=== PATIENT | male | born 1935 | race Caucasian/White ===

== ENCOUNTER → 2016-05-07 | Outpatient (CLI) | payer MEDICARE, OTHER ==
[~2016-05-07] MED LIST: /HCTZ25TA PO; /PANT40TA PO; ASPI81TA85 PO; BISAC5TA PO; CORE12.5 PO; CORE25TA PO; D 1010004 PO; DULC10SU9 PR; ELIQ5TAB PO; FLAG500T PO; HYDR25TAB PO; MAGN1TAB25 PO; METO50TA4 PO; MOM30SS PO; MULTLIQ7 PO; OXYC-517 PO; PROT1TAB2 PO; SOTA120T PO; SOTA160T PO; SPIR25TA2 PO; TYLE650T30 PO; VITA-112 PO; VITA-122 PO; VITAD1000T FT; multivitamin PO
--- NOTE | 2016-05-09 20:07 | SLEEPCENT ---
DATE OF PROCEDURE: 05/07/2016 REQUESTING PROVIDER: Malinda Ferguson NP INTERPRETATION: Nocturnal polysomnography was performed due to concern for the obstructive sleep apnea syndrome in this patient with a history of excessive somnolence and snoring and significant comorbidities of cardiac arrhythmia, heart failure and CVA. 7 hours and 31 minutes of data were reviewed. There were 260 minutes of sleep identified. Sleep latency was mildly prolonged at 45 minutes. Rapid eye movement (REM) latency was more so prolonged at 217 minutes. Sleep architecture showed poor progression and fragmentation. There were 2 REM periods appreciated. Overall efficiency was reduced by periods of wake to 58.5%. The patient's electrocardiogram (EKG) was abnormal with an underlying supraventricular rhythm and frequent ectopy throughout. Average heart rate however was 60 beats per minute. Electroencephalogram (EEG) showed reasonably normal waveforms for sleep and wake stages. There were 26 respiratory events identified of 10 seconds in duration or greater for an apnea-hypopnea index of 5.2. The events were primarily hypopneic and not exclusive to sleep stage nor body posture. Some snoring was noted as well. Arousals from respiratory events occurred only 1.6 times per hour. Oxygen saturations remained normal with minimal limb activity and limb movement arousal index was only 3. IMPRESSION: 1. Mild obstructive sleep apnea syndrome (G47.33). Apnea-hypopnea index of 5.2. 2. Sleep fragmentation, poor sleep progression. 3. Complex cardiac rhythm, frequent appearing ventricular arrhythmia. RECOMMENDATIONS: Interventions to optimize upper airway tone may be sufficient to address this patient's apnea. The infrequency of arousals suggests other etiologies for his sleep fragmentation though no significant physiologic findings were identified. Should symptoms persist, referral [facility] for [facility] could be considered.
== END ==
LOC: M SLEEP 19:13
PROVIDERS: ATTEND Nurse Practitioner Adult Health
DX: G47.33 Obstructive sleep apnea (adult) (pediatric) (principal)

== ENCOUNTER 2016-09-14 10:48 | Emergency (ER) | payer MEDICARE ==
[~2016-09-14] VITALS: Ht 177.8 cm; Wt 94.1 kg
[2016-09-14] MEDS ORDERED: VITA100066 PO (11:10)
[2016-09-14] MEDS ORDERED: RANI15TA PO (11:10)
[2016-09-14] MEDS ORDERED: BUME2TAB PO (11:10)
[2016-09-14] MEDS ORDERED: PERCOCET 5MG/325MG TAB PO ONE (12:00)
--- NOTE | 2016-09-14 13:09 | REP ---
PELVIS AND RIGHT HIP: AP view of the pelvis and two views of the right hip are performed. I see no acute fracture or dislocation. There are moderate degenerative changes at each hip joint with joint space narrowing, subchondral sclerosis and spurring. IMPRESSION: Degenerative changes without fracture or dislocation. Signed by Benny Lundberg MD 09/14/2016 03:31 P
--- NOTE | 2016-09-14 13:12 | REP ---
LUMBOSACRAL SPINE: Five views of the lumbosacral spine performed. There is no compression fracture. There is no malalignment. There is no spondylolysis or spondylolisthesis. Mild to moderate diffuse spurring is seen. There is minimal disc space narrowing and subchondral sclerosis at all levels. There is sclerosis at the facets of L5-S1. The posterior elements are intact. IMPRESSION: Diffuse degenerative changes without fracture or dislocation. Signed by Benny Lundberg MD 09/14/2016 03:31 P
[2016-09-14] MEDS ORDERED: PERC5TAB12 PO (14:21)
[2016-09-14 14:27] VITALS: BP 125/76
== END 2016-09-14 14:42 | disposition home or self-care (01) ==
LOC: M ED 10:48 → EDBD 10:48 → M ED 14:42
DX: M54.5 Low back pain (principal); M51.36 Other intervertebral disc degeneration, lumbar region; I25.10 Atherosclerotic heart disease of native coronary artery without angina pectoris; I25.2 Old myocardial infarction; I10 Essential (primary) hypertension; E78.9 Disorder of lipoprotein metabolism, unspecified; K21.9 Gastro-esophageal reflux disease without esophagitis; I34.9 Nonrheumatic mitral valve disorder, unspecified; Z86.73 Personal history of transient ischemic attack (TIA), and cerebral infarction without residual deficits; Z95.810 Presence of automatic (implantable) cardiac defibrillator; Z91.041 Radiographic dye allergy status; Z79.899 Other long term (current) drug therapy; Z79.82 Long term (current) use of aspirin

== ENCOUNTER 2017-05-12 19:33 | Emergency (ER) | payer MEDICARE ==
[2017-05-12] MEDS: METOCLOPRAMIDE INJ 10MG/2ML VIAL (J2765) IV (20:29)
[2017-05-12] MEDS: NS 1,000 ML IV (20:29)
[2017-05-12 21:20] LABS: INR 1.09; PROTHROMBIN TIME 14.2 SECONDS (12.4-14.5)
[2017-05-12 21:21] LABS: PARTIAL THROMBOPLASTIN TIME 30.3 SECONDS (26.8-37.9)
[2017-05-12] MEDS: PROMETHAZINE INJ 25 MG/ML VIAL (J2550) IV (21:25)
[2017-05-12 21:36] LABS: ALBUMIN/GLOBULIN RATIO 1.05 (1.00-1.93); ALKALINE PHOSPHATASE 66 U/L (45-117); ALT/SGPT 18 U/L (12-78); ANION GAP 9 MEQ/L (8-16); AST/SGOT 11 U/L (7-37); BILIRUBIN,DIRECT 0.2 MG/DL (0.0-0.2); BILIRUBIN,TOTAL 1.1 MG/DL (0.2-1.0); BLOOD UREA NITROGEN 35 MG/DL (7-18); CALCIUM LEVEL 8.7 MG/DL (8.8-10.2); CARBON DIOXIDE LEVEL 27 MEQ/L (21-32); CHLORIDE LEVEL 100 MEQ/L (98-107); CPK CREATINE PHOSPHOKINASE 39 U/L (39-308); CREATININE FOR GFR 1.78 MG/DL (0.70-1.30); FREE T4 1.28 NG/DL (0.76-1.46); GLOMERULAR FILTRATION RATE 39.3 (>35); GLUCOSE, FASTING 121 MG/DL (70-100); LIPASE 91 U/L (73-393); POTASSIUM SERUM 4.2 MEQ/L (3.5-5.1); SODIUM LEVEL 136 MEQ/L (136-145); TOTAL PROTEIN 7.8 GM/DL (6.4-8.2); TROPONIN I < 0.02 NG/ML (< 0.10)
[2017-05-12 21:41] LABS: CK-MB VALUE MASS < 1.0 NG/ML (<3.6); MB/CK RELATIVE INDEX 2.56 (< OR =4)
[2017-05-12 21:57] LABS: BASO % 0.3 % (0.0-1.0); HEMATOCRIT 45.1 % (42.0-52.0); HEMOGLOBIN 15.4 g/dl (14.0-18.0); IMMATURE GRANULOCYTE % 0.4 % (0-3.0); LYMPH % 9.9 % (24.0-44.0); MEAN CORPUSCULAR HEMOGLOBIN 30.6 pg (27.0-33.0); MEAN CORPUSCULAR HGB CONC 34.1 g/dl (32.0-36.5); MEAN CORPUSCULAR VOLUME 89.7 fl (80.0-96.0); MONO # 0.5 10^3/uL (0.0-0.8); MONO % 5.3 % (0.0-5.0); NEUTROPHILS # 8.4 10^3/uL (1.8-7.7); NEUTROPHILS % 84.1 % (36.0-66.0); PLATELET COUNT, AUTOMATED 127 10^3/uL (150-450); RED BLOOD COUNT 5.03 10^6/uL (4.30-6.10); RED CELL DISTRIBUTION WIDTH 12.4 % (11.5-14.5)
== END 2017-05-13 00:59 | disposition home or self-care (01) ==
LOC: M ED 05-13 00:59
DX: R11.2 Nausea with vomiting, unspecified (principal); R42 Dizziness and giddiness; R53.1 Weakness; I48.91 Unspecified atrial fibrillation; Z95.0 Presence of cardiac pacemaker; Z91.041 Radiographic dye allergy status; Z79.899 Other long term (current) drug therapy; Z79.82 Long term (current) use of aspirin
CPT/HCPCS: J2765

== ENCOUNTER 2017-05-19 09:56 | Inpatient (IN) | payer MEDICARE ==
[2017-05-19 11:23] LABS: ANION GAP 7 MEQ/L (8-16); BLOOD UREA NITROGEN 28 MG/DL (7-18); CALCIUM LEVEL 8.8 MG/DL (8.8-10.2); CARBON DIOXIDE LEVEL 29 MEQ/L (21-32); CHLORIDE LEVEL 104 MEQ/L (98-107); CPK CREATINE PHOSPHOKINASE 27 U/L (39-308); CREATININE FOR GFR 1.71 MG/DL (0.70-1.30); GLOMERULAR FILTRATION RATE 41.2 (>35); GLUCOSE, FASTING 107 MG/DL (70-100); MAGNESIUM LEVEL 2.8 MG/DL (1.8-2.4); POTASSIUM SERUM 4.3 MEQ/L (3.5-5.1); SODIUM LEVEL 140 MEQ/L (136-145); TROPONIN I < 0.02 NG/ML (< 0.10)
[2017-05-19 11:24] LABS: CK-MB VALUE MASS < 1.0 NG/ML (<3.6)
[2017-05-19 12:26] LABS: ALBUMIN 3.9 GM/DL (3.2-5.2); ALBUMIN/GLOBULIN RATIO 1.08 (1.00-1.93); ALKALINE PHOSPHATASE 68 U/L (45-117); ALT/SGPT 16 U/L (12-78); AST/SGOT 10 U/L (7-37); BILIRUBIN,DIRECT 0.2 MG/DL (0.0-0.2); LIPASE 118 U/L (73-393); TOTAL PROTEIN 7.5 GM/DL (6.4-8.2)
[2017-05-19] MEDS: NS 500 ML IV (12:47)
[2017-05-19] MEDS ORDERED: ISOVUE-370 76% 100ML VIAL (Q9967) As Ordered (12:57)
[2017-05-19 13:50] LABS: HEMATOCRIT 48.3 % (42.0-52.0); MEAN CORPUSCULAR HEMOGLOBIN 30.2 pg (27.0-33.0); MEAN CORPUSCULAR HGB CONC 33.1 g/dl (32.0-36.5); MEAN CORPUSCULAR VOLUME 91.1 fl (80.0-96.0); PLATELET COUNT, AUTOMATED 118 10^3/uL (150-450); RED CELL DISTRIBUTION WIDTH 12.4 % (11.5-14.5); WHITE BLOOD COUNT 9.4 10^3/uL (4.0-10.0)
[2017-05-19] MEDS ORDERED: ONDANSETRON 4 MG TAB (S0181) PO (14:30)
[2017-05-19] MEDS: ONDANSETRON 4MG/2ML VIAL (J2405) IV (15:03)
[2017-05-19] MEDS: NS 1,000 ML IV (15:03)
[2017-05-19] MEDS: PROMETHAZINE INJ 25 MG/ML VIAL (J2550) IV (15:55)
[2017-05-19 16:25] LABS: CK-MB VALUE MASS < 1.0 NG/ML (<3.6); CPK CREATINE PHOSPHOKINASE 25 U/L (39-308); TROPONIN I < 0.02 NG/ML (< 0.10)
[2017-05-19] MEDS: VITAMIN D 1,000 INTERNATIONAL UNITS TABLET PO (21:00)
[2017-05-19] MEDS: FAMOTIDINE 20 MG TAB PO (21:00)
[2017-05-19] MEDS: AMIODARONE 200 MG TAB (PACERONE) PO (21:00)
[2017-05-19] MEDS: CARVedilol 12.5 MG TAB PO (21:00)
[2017-05-19] MEDS: ASPIRIN 81 MG ENTERIC TAB PO (21:00)
[2017-05-19] MEDS: HEPARIN SOD (PORCINE) 5000 UNITS/ML VIAL SC (22:41)
[2017-05-19 22:43] LABS: CK-MB VALUE MASS < 1.0 NG/ML (<3.6); CPK CREATINE PHOSPHOKINASE 22 U/L (39-308); MB/CK RELATIVE INDEX 4.54 (< OR =4); TROPONIN I < 0.02 NG/ML (< 0.10)
[2017-05-20] MEDS: HEPARIN SOD (PORCINE) 5000 UNITS/ML VIAL SC ×2 (05:12→13:39)
[2017-05-20] MEDS: NS 1,000 ML IV ×2 (05:12→16:49)
[2017-05-20 05:24] LABS: BASO # 0.1 10^3/uL (0.0-0.2); BASO % 0.6 % (0.0-1.0); EOS # 0.2 10^3/uL (0.0-0.50); EOS % 1.9 % (0.0-3.0); HEMATOCRIT 46.6 % (42.0-52.0); HEMOGLOBIN 15.4 g/dl (13.5-17.5); IMMATURE GRANULOCYTE % 0.3 % (0-3.0); LYMPH # 1.4 10^3/uL (1.5-4.5); LYMPH % 17.8 % (24.0-44.0); MEAN CORPUSCULAR VOLUME 90.7 fl (80.0-96.0); MONO # 0.7 10^3/uL (0.0-0.8); MONO % 8.3 % (0.0-5.0); NEUTROPHILS # 5.6 10^3/uL (1.8-7.7); NEUTROPHILS % 71.1 % (36.0-66.0); PLATELET COUNT, AUTOMATED 104 10^3/uL (150-450); RED BLOOD COUNT 5.14 10^6/uL (4.30-6.10); RED CELL DISTRIBUTION WIDTH 12.6 % (11.5-14.5); WHITE BLOOD COUNT 7.9 10^3/uL (4.0-10.0)
[2017-05-20 05:47] LABS: ALBUMIN 3.2 GM/DL (3.2-5.2); ALKALINE PHOSPHATASE 60 U/L (45-117); ALT/SGPT 13 U/L (12-78); ANION GAP 7 MEQ/L (8-16); AST/SGOT 10 U/L (7-37); BILIRUBIN,TOTAL 0.9 MG/DL (0.2-1.0); BLOOD UREA NITROGEN 27 MG/DL (7-18); CALCIUM LEVEL 8.3 MG/DL (8.8-10.2); CARBON DIOXIDE LEVEL 25 MEQ/L (21-32); CHLORIDE LEVEL 112 MEQ/L (98-107); GLOMERULAR FILTRATION RATE 51.9 (>35); GLUCOSE, FASTING 74 MG/DL (70-100); MAGNESIUM LEVEL 2.8 MG/DL (1.8-2.4); POTASSIUM SERUM 4.1 MEQ/L (3.5-5.1); SODIUM LEVEL 144 MEQ/L (136-145); TOTAL PROTEIN 6.4 GM/DL (6.4-8.2)
[2017-05-20 06:40] LABS: OSMOLALITY URINE 886 MOSM/KG (500-800)
[2017-05-20 06:46] LABS: SODIUM,RANDOM URINE 82 MEQ/L
[2017-05-20] MEDS: MULTIVITAMINS/MINERALS THERAP 1 TAB PO ×2 (08:53→09:00)
[2017-05-20] MEDS: VITAMIN D 1,000 INTERNATIONAL UNITS TABLET PO ×2 (08:53→20:29)
[2017-05-20] MEDS: CARVedilol 12.5 MG TAB PO (08:53)
[2017-05-20] MEDS: AMIODARONE 200 MG TAB (PACERONE) PO (08:57)
[2017-05-20] MEDS: METOCLOPRAMIDE INJ 10MG/2ML VIAL (J2765) IV (11:33)
[2017-05-20] MEDS: CARVedilol 6.25 MG TAB PO (20:29)
[2017-05-20] MEDS: FAMOTIDINE 20 MG TAB PO (20:29)
[2017-05-20] MEDS: ASPIRIN 81 MG ENTERIC TAB PO (20:29)
[2017-05-20] MEDS: AMIODARONE HCL 150 MG/100 ML PREMIXED BAG (NEXTERONE) IV (20:29)
[2017-05-21] MEDS: NS 1,000 ML IV ×2 (05:05→17:06)
[2017-05-21 05:52] LABS: BASO # 0.1 10^3/uL (0.0-0.2); BASO % 0.8 % (0.0-1.0); EOS # 0.2 10^3/uL (0.0-0.50); EOS % 2.9 % (0.0-3.0); HEMATOCRIT 44.5 % (42.0-52.0); HEMOGLOBIN 14.6 g/dl (13.5-17.5); IMMATURE GRANULOCYTE % 0.3 % (0-3.0); LYMPH # 1.4 10^3/uL (1.5-4.5); LYMPH % 22.1 % (24.0-44.0); MEAN CORPUSCULAR HEMOGLOBIN 29.9 pg (27.0-33.0); MEAN CORPUSCULAR HGB CONC 32.8 g/dl (32.0-36.5); MONO # 0.5 10^3/uL (0.0-0.8); MONO % 8.5 % (0.0-5.0); NEUTROPHILS # 4.1 10^3/uL (1.8-7.7); NEUTROPHILS % 65.4 % (36.0-66.0); PLATELET COUNT, AUTOMATED 100 10^3/uL (150-450); RED BLOOD COUNT 4.89 10^6/uL (4.30-6.10); RED CELL DISTRIBUTION WIDTH 12.6 % (11.5-14.5); WHITE BLOOD COUNT 6.2 10^3/uL (4.0-10.0)
[2017-05-21 06:21] LABS: ALBUMIN 3.1 GM/DL (3.2-5.2); ALBUMIN/GLOBULIN RATIO 1.11 (1.00-1.93); ALKALINE PHOSPHATASE 59 U/L (45-117); ALT/SGPT 15 U/L (12-78); ANION GAP 6 MEQ/L (8-16); AST/SGOT 11 U/L (7-37); BILIRUBIN,TOTAL 0.5 MG/DL (0.2-1.0); BLOOD UREA NITROGEN 27 MG/DL (7-18); CARBON DIOXIDE LEVEL 23 MEQ/L (21-32); CHLORIDE LEVEL 114 MEQ/L (98-107); CREATININE FOR GFR 1.35 MG/DL (0.70-1.30); GLOMERULAR FILTRATION RATE 54.1 (>35); GLUCOSE, FASTING 76 MG/DL (70-100); MAGNESIUM LEVEL 2.3 MG/DL (1.8-2.4); SODIUM LEVEL 143 MEQ/L (136-145); TOTAL PROTEIN 5.9 GM/DL (6.4-8.2)
[2017-05-21] MEDS: ENOXAPARIN 40 MG/0.4 ML SYRINGE (J1650) SC (08:29)
[2017-05-21] MEDS: CARVedilol 6.25 MG TAB PO (08:33)
[2017-05-21] MEDS: VITAMIN D 1,000 INTERNATIONAL UNITS TABLET PO ×2 (08:33→20:59)
[2017-05-21] MEDS: AMIODARONE HCL 150 MG/100 ML PREMIXED BAG (NEXTERONE) IV ×2 (08:34→20:58)
[2017-05-21] MEDS: MULTIVITAMINS/MINERALS THERAP 1 TAB PO (08:34)
[2017-05-21 18:50] LABS: ANION GAP 5 MEQ/L (8-16); BLOOD UREA NITROGEN 23 MG/DL (7-18); CALCIUM LEVEL 8.1 MG/DL (8.8-10.2); CARBON DIOXIDE LEVEL 24 MEQ/L (21-32); CHLORIDE LEVEL 112 MEQ/L (98-107); CREATININE FOR GFR 1.22 MG/DL (0.70-1.30); GLOMERULAR FILTRATION RATE > 60.0 (>35); GLUCOSE, FASTING 132 MG/DL (70-100); POTASSIUM SERUM 4.3 MEQ/L (3.5-5.1); SODIUM LEVEL 141 MEQ/L (136-145)
[2017-05-21] MEDS: FAMOTIDINE 20 MG TAB PO (20:59)
[2017-05-21] MEDS: ASPIRIN 81 MG ENTERIC TAB PO (20:59)
[2017-05-21] MEDS: CARVedilol 12.5 MG TAB PO (20:59)
[2017-05-22 05:57] LABS: BASO # 0.1 10^3/uL (0.0-0.2); BASO % 0.9 % (0.0-1.0); EOS # 0.2 10^3/uL (0.0-0.50); EOS % 2.9 % (0.0-3.0); HEMATOCRIT 40.3 % (42.0-52.0); HEMOGLOBIN 13.6 g/dl (13.5-17.5); IMMATURE GRANULOCYTE % 0.3 % (0-3.0); LYMPH # 1.1 10^3/uL (1.5-4.5); LYMPH % 18.9 % (24.0-44.0); MEAN CORPUSCULAR HEMOGLOBIN 30.5 pg (27.0-33.0); MEAN CORPUSCULAR HGB CONC 33.7 g/dl (32.0-36.5); MEAN CORPUSCULAR VOLUME 90.4 fl (80.0-96.0); MONO # 0.6 10^3/uL (0.0-0.8); MONO % 9.6 % (0.0-5.0); NEUTROPHILS # 3.9 10^3/uL (1.8-7.7); NEUTROPHILS % 67.4 % (36.0-66.0); RED BLOOD COUNT 4.46 10^6/uL (4.30-6.10); RED CELL DISTRIBUTION WIDTH 12.7 % (11.5-14.5); WHITE BLOOD COUNT 5.8 10^3/uL (4.0-10.0)
[2017-05-22 06:20] LABS: ALBUMIN 2.9 GM/DL (3.2-5.2); ALBUMIN/GLOBULIN RATIO 1.16 (1.00-1.93); ALKALINE PHOSPHATASE 54 U/L (45-117); ALT/SGPT 13 U/L (12-78); ANION GAP 6 MEQ/L (8-16); AST/SGOT 12 U/L (7-37); BILIRUBIN,TOTAL 0.5 MG/DL (0.2-1.0); BLOOD UREA NITROGEN 19 MG/DL (7-18); CALCIUM LEVEL 7.9 MG/DL (8.8-10.2); CARBON DIOXIDE LEVEL 23 MEQ/L (21-32); CHLORIDE LEVEL 115 MEQ/L (98-107); CREATININE FOR GFR 1.17 MG/DL (0.70-1.30); GLOMERULAR FILTRATION RATE > 60.0 (>35); GLUCOSE, FASTING 76 MG/DL (70-100); MAGNESIUM LEVEL 2.3 MG/DL (1.8-2.4); POTASSIUM SERUM 4.1 MEQ/L (3.5-5.1); SODIUM LEVEL 144 MEQ/L (136-145); TOTAL PROTEIN 5.4 GM/DL (6.4-8.2)
[2017-05-22 06:33] LABS: IMMATURE PLATELET FRACTION % 4.6 % (0.0-10.9); PLATELET COUNT, AUTOMATED 99 10^3/uL (150-450)
[2017-05-22] MEDS: VITAMIN D 1,000 INTERNATIONAL UNITS TABLET PO ×2 (08:21→20:34)
[2017-05-22] MEDS: ENOXAPARIN 40 MG/0.4 ML SYRINGE (J1650) SC (08:21)
[2017-05-22] MEDS: MULTIVITAMINS/MINERALS THERAP 1 TAB PO (08:21)
[2017-05-22] MEDS: AMIODARONE HCL 150 MG/100 ML PREMIXED BAG (NEXTERONE) IV ×2 (08:21→20:34)
[2017-05-22] MEDS: CARVedilol 12.5 MG TAB PO ×2 (08:21→20:33)
[2017-05-22 14:13] LABS: AMIODARONE (CORDARONE) 1.3 ug/mL (1.0-2.5); NORAMIODARONE LEVEL 0.7 ug/mL (1.0-2.5)
[2017-05-22] MEDS: METOCLOPRAMIDE INJ 10MG/2ML VIAL (J2765) IV (14:35)
[2017-05-22] MEDS: ASPIRIN 81 MG ENTERIC TAB PO (20:33)
[2017-05-22] MEDS: FAMOTIDINE 20 MG TAB PO (20:34)
[2017-05-23] MEDS: METOCLOPRAMIDE INJ 10MG/2ML VIAL (J2765) IV (00:19)
[2017-05-23 06:38] LABS: BASO % 0.7 % (0.0-1.0); EOS # 0.2 10^3/uL (0.0-0.50); EOS % 2.6 % (0.0-3.0); HEMATOCRIT 41.1 % (42.0-52.0); HEMOGLOBIN 13.9 g/dl (13.5-17.5); IMMATURE GRANULOCYTE % 0.3 % (0-3.0); LYMPH # 1.2 10^3/uL (1.5-4.5); LYMPH % 20.8 % (24.0-44.0); MEAN CORPUSCULAR HEMOGLOBIN 30.5 pg (27.0-33.0); MEAN CORPUSCULAR HGB CONC 33.8 g/dl (32.0-36.5); MEAN CORPUSCULAR VOLUME 90.1 fl (80.0-96.0); MONO # 0.5 10^3/uL (0.0-0.8); NEUTROPHILS # 3.9 10^3/uL (1.8-7.7); NEUTROPHILS % 66.6 % (36.0-66.0); PLATELET COUNT, AUTOMATED 100 10^3/uL (150-450); RED BLOOD COUNT 4.56 10^6/uL (4.30-6.10); RED CELL DISTRIBUTION WIDTH 12.6 % (11.5-14.5); WHITE BLOOD COUNT 5.9 10^3/uL (4.0-10.0)
[2017-05-23 06:55] LABS: ALBUMIN 2.9 GM/DL (3.2-5.2); ALBUMIN/GLOBULIN RATIO 0.97 (1.00-1.93); ALKALINE PHOSPHATASE 55 U/L (45-117); ALT/SGPT 14 U/L (12-78); ANION GAP 8 MEQ/L (8-16); AST/SGOT 13 U/L (7-37); BILIRUBIN,TOTAL 0.5 MG/DL (0.2-1.0); BLOOD UREA NITROGEN 15 MG/DL (7-18); CARBON DIOXIDE LEVEL 23 MEQ/L (21-32); CHLORIDE LEVEL 112 MEQ/L (98-107); CREATININE FOR GFR 1.17 MG/DL (0.70-1.30); GLOMERULAR FILTRATION RATE > 60.0 (>35); GLUCOSE, FASTING 77 MG/DL (70-100); MAGNESIUM LEVEL 2.3 MG/DL (1.8-2.4); POTASSIUM SERUM 3.8 MEQ/L (3.5-5.1); SODIUM LEVEL 143 MEQ/L (136-145); TOTAL PROTEIN 5.9 GM/DL (6.4-8.2)
[2017-05-23] MEDS: VITAMIN D 1,000 INTERNATIONAL UNITS TABLET PO ×2 (08:23→20:14)
[2017-05-23] MEDS: CARVedilol 12.5 MG TAB PO ×2 (08:23→20:15)
[2017-05-23] MEDS: MULTIVITAMINS/MINERALS THERAP 1 TAB PO (08:23)
[2017-05-23] MEDS: AMIODARONE 200 MG TAB (PACERONE) PO ×2 (08:23→17:32)
[2017-05-23] MEDS: ENOXAPARIN 40 MG/0.4 ML SYRINGE (J1650) SC (10:00)
[2017-05-23] MEDS: ASPIRIN 81 MG ENTERIC TAB PO (20:14)
[2017-05-23] MEDS: FAMOTIDINE 20 MG TAB PO (20:14)
[2017-05-23] MEDS: LISINOPRIL 10 MG TAB PO (20:15)
[2017-05-24 06:46] LABS: BASO % 0.7 % (0.0-1.0); EOS # 0.2 10^3/uL (0.0-0.50); EOS % 3.7 % (0.0-3.0); HEMATOCRIT 41.9 % (42.0-52.0); HEMOGLOBIN 14.2 g/dl (13.5-17.5); IMMATURE GRANULOCYTE % 0.4 % (0-3.0); LYMPH # 1.2 10^3/uL (1.5-4.5); LYMPH % 21.4 % (24.0-44.0); MEAN CORPUSCULAR HEMOGLOBIN 30.6 pg (27.0-33.0); MEAN CORPUSCULAR HGB CONC 33.9 g/dl (32.0-36.5); MEAN CORPUSCULAR VOLUME 90.3 fl (80.0-96.0); MONO # 0.6 10^3/uL (0.0-0.8); MONO % 10.2 % (0.0-5.0); NEUTROPHILS # 3.4 10^3/uL (1.8-7.7); NEUTROPHILS % 63.6 % (36.0-66.0); PLATELET COUNT, AUTOMATED 105 10^3/uL (150-450); RED BLOOD COUNT 4.64 10^6/uL (4.30-6.10); RED CELL DISTRIBUTION WIDTH 12.7 % (11.5-14.5); WHITE BLOOD COUNT 5.4 10^3/uL (4.0-10.0)
[2017-05-24 07:30] LABS: ALBUMIN/GLOBULIN RATIO 1.03 (1.00-1.93); ALKALINE PHOSPHATASE 61 U/L (45-117); ALT/SGPT 23 U/L (12-78); ANION GAP 8 MEQ/L (8-16); AST/SGOT 18 U/L (7-37); BILIRUBIN,TOTAL 0.6 MG/DL (0.2-1.0); BLOOD UREA NITROGEN 14 MG/DL (7-18); CALCIUM LEVEL 8.4 MG/DL (8.8-10.2); CARBON DIOXIDE LEVEL 24 MEQ/L (21-32); CHLORIDE LEVEL 111 MEQ/L (98-107); CREATININE FOR GFR 1.11 MG/DL (0.70-1.30); GLOMERULAR FILTRATION RATE > 60.0 (>35); GLUCOSE, FASTING 72 MG/DL (70-100); MAGNESIUM LEVEL 2.3 MG/DL (1.8-2.4); POTASSIUM SERUM 3.8 MEQ/L (3.5-5.1); SODIUM LEVEL 143 MEQ/L (136-145); TOTAL PROTEIN 5.9 GM/DL (6.4-8.2)
[2017-05-24] MEDS: METOCLOPRAMIDE INJ 10MG/2ML VIAL (J2765) IV ×3 (09:36→22:12)
[2017-05-24] MEDS: MULTIVITAMINS/MINERALS THERAP 1 TAB PO (09:38)
[2017-05-24] MEDS: VITAMIN D 1,000 INTERNATIONAL UNITS TABLET PO ×2 (09:39→21:00)
[2017-05-24] MEDS: AMIODARONE 200 MG TAB (PACERONE) PO ×2 (09:39→17:10)
[2017-05-24] MEDS: ENOXAPARIN 40 MG/0.4 ML SYRINGE (J1650) SC (09:40)
[2017-05-24] MEDS: CARVedilol 12.5 MG TAB PO ×2 (09:40→21:00)
[2017-05-24] MEDS: LISINOPRIL 10 MG TAB PO (21:00)
[2017-05-24] MEDS: ASPIRIN 81 MG ENTERIC TAB PO (21:00)
[2017-05-24] MEDS: FAMOTIDINE 20 MG TAB PO (21:00)
[2017-05-25] MEDS: PROCHLORPERAZINE 10 MG/2 ML VIAL (J0780) IV (00:04)
[2017-05-25] MEDS ORDERED: PROCHLORPERAZINE 5 MG TAB (S0183) PO (06:45)
[2017-05-25 06:51] LABS: ALBUMIN 3.2 GM/DL (3.2-5.2); ALBUMIN/GLOBULIN RATIO 1.07 (1.00-1.93); ALKALINE PHOSPHATASE 63 U/L (45-117); ALT/SGPT 32 U/L (12-78); ANION GAP 6 MEQ/L (8-16); AST/SGOT 22 U/L (7-37); BILIRUBIN,TOTAL 0.6 MG/DL (0.2-1.0); BLOOD UREA NITROGEN 18 MG/DL (7-18); CALCIUM LEVEL 8.4 MG/DL (8.8-10.2); CARBON DIOXIDE LEVEL 25 MEQ/L (21-32); CHLORIDE LEVEL 112 MEQ/L (98-107); CREATININE FOR GFR 1.12 MG/DL (0.70-1.30); GLOMERULAR FILTRATION RATE > 60.0 (>35); GLUCOSE, FASTING 108 MG/DL (70-100); MAGNESIUM LEVEL 2.4 MG/DL (1.8-2.4); POTASSIUM SERUM 4.3 MEQ/L (3.5-5.1); SODIUM LEVEL 143 MEQ/L (136-145); TOTAL PROTEIN 6.2 GM/DL (6.4-8.2)
[2017-05-25 07:00] LABS: BASO % 0.2 % (0.0-1.0); HEMATOCRIT 43.8 % (42.0-52.0); HEMOGLOBIN 14.8 g/dl (13.5-17.5); IMMATURE GRANULOCYTE % 0.5 % (0-3.0); LYMPH % 11.8 % (24.0-44.0); MEAN CORPUSCULAR HEMOGLOBIN 30.5 pg (27.0-33.0); MEAN CORPUSCULAR HGB CONC 33.8 g/dl (32.0-36.5); MEAN CORPUSCULAR VOLUME 90.1 fl (80.0-96.0); MONO # 0.4 10^3/uL (0.0-0.8); MONO % 4.6 % (0.0-5.0); NEUTROPHILS # 6.7 10^3/uL (1.8-7.7); NEUTROPHILS % 82.9 % (36.0-66.0); PLATELET COUNT, AUTOMATED 113 10^3/uL (150-450); POS COUNT POS FLAG; RED BLOOD COUNT 4.86 10^6/uL (4.30-6.10); RED CELL DISTRIBUTION WIDTH 12.7 % (11.5-14.5); WHITE BLOOD COUNT 8.1 10^3/uL (4.0-10.0)
[2017-05-25] MEDS: METOCLOPRAMIDE INJ 10MG/2ML VIAL (J2765) IV ×2 (08:53→18:25)
[2017-05-25] MEDS: AMIODARONE 200 MG TAB (PACERONE) PO ×2 (08:56→18:00)
[2017-05-25] MEDS: CARVedilol 12.5 MG TAB PO ×2 (08:56→21:00)
[2017-05-25] MEDS: VITAMIN D 1,000 INTERNATIONAL UNITS TABLET PO ×2 (08:57→21:00)
[2017-05-25] MEDS: MULTIVITAMINS/MINERALS THERAP 1 TAB PO (08:57)
[2017-05-25] MEDS: ENOXAPARIN 40 MG/0.4 ML SYRINGE (J1650) SC (09:05)
[2017-05-25 12:01] LABS: AMYLASE 69 U/L (25-115); LIPASE 76 U/L (73-393)
[2017-05-25] MEDS: LISINOPRIL 10 MG TAB PO (21:00)
[2017-05-25] MEDS: ASPIRIN 81 MG ENTERIC TAB PO (21:00)
[2017-05-25] MEDS: FAMOTIDINE 20 MG TAB PO (21:00)
[2017-05-26 05:59] LABS: BASO % 0.3 % (0.0-1.0); EOS % 0.1 % (0.0-3.0); HEMOGLOBIN 14.4 g/dl (13.5-17.5); IMMATURE GRANULOCYTE % 0.4 % (0-3.0); LYMPH # 1.5 10^3/uL (1.5-4.5); LYMPH % 14.6 % (24.0-44.0); MEAN CORPUSCULAR HEMOGLOBIN 30.4 pg (27.0-33.0); MEAN CORPUSCULAR HGB CONC 34.3 g/dl (32.0-36.5); MEAN CORPUSCULAR VOLUME 88.8 fl (80.0-96.0); MONO # 0.7 10^3/uL (0.0-0.8); MONO % 7.4 % (0.0-5.0); NEUTROPHILS # 7.7 10^3/uL (1.8-7.7); NEUTROPHILS % 77.2 % (36.0-66.0); PLATELET COUNT, AUTOMATED 133 10^3/uL (150-450); RED BLOOD COUNT 4.73 10^6/uL (4.30-6.10); RED CELL DISTRIBUTION WIDTH 12.7 % (11.5-14.5); WHITE BLOOD COUNT 9.9 10^3/uL (4.0-10.0)
[2017-05-26 06:14] LABS: ALBUMIN 3.2 GM/DL (3.2-5.2); ALBUMIN/GLOBULIN RATIO 1.03 (1.00-1.93); ALKALINE PHOSPHATASE 62 U/L (45-117); ALT/SGPT 29 U/L (12-78); ANION GAP 8 MEQ/L (8-16); AST/SGOT 14 U/L (7-37); BILIRUBIN,TOTAL 0.7 MG/DL (0.2-1.0); BLOOD UREA NITROGEN 21 MG/DL (7-18); CALCIUM LEVEL 8.5 MG/DL (8.8-10.2); CARBON DIOXIDE LEVEL 25 MEQ/L (21-32); CHLORIDE LEVEL 111 MEQ/L (98-107); CREATININE FOR GFR 1.09 MG/DL (0.70-1.30); GLOMERULAR FILTRATION RATE > 60.0 (>35); GLUCOSE, FASTING 87 MG/DL (70-100); MAGNESIUM LEVEL 2.4 MG/DL (1.8-2.4); POTASSIUM SERUM 3.8 MEQ/L (3.5-5.1); SODIUM LEVEL 144 MEQ/L (136-145); TOTAL PROTEIN 6.3 GM/DL (6.4-8.2)
[2017-05-26 06:27] LABS: ALBUMIN 3.2 GM/DL (3.2-5.2); ALKALINE PHOSPHATASE 62 U/L (45-117); ALT/SGPT 28 U/L (12-78); AMYLASE 42 U/L (25-115); ANION GAP 8 MEQ/L (8-16); AST/SGOT 16 U/L (7-37); BILIRUBIN,TOTAL 0.7 MG/DL (0.2-1.0); BLOOD UREA NITROGEN 21 MG/DL (7-18); C REACTIVE PROTEIN QUANTITATIV 0.48 MG/DL (0.00-0.30); CALCIUM LEVEL 8.4 MG/DL (8.8-10.2); CARBON DIOXIDE LEVEL 24 MEQ/L (21-32); CHLORIDE LEVEL 111 MEQ/L (98-107); CREATININE FOR GFR 1.09 MG/DL (0.70-1.30); GLOMERULAR FILTRATION RATE > 60.0 (>35); GLUCOSE, FASTING 84 MG/DL (70-100); LIPASE 69 U/L (73-393); MAGNESIUM LEVEL 2.3 MG/DL (1.8-2.4); SODIUM LEVEL 143 MEQ/L (136-145); TOTAL PROTEIN 6.1 GM/DL (6.4-8.2)
[2017-05-26] MEDS: METOCLOPRAMIDE INJ 10MG/2ML VIAL (J2765) IV ×3 (06:27→17:05)
[2017-05-26 06:29] LABS: ERYTHROCYTE SEDIMENTATION RATE 7 mm/hr (0-20)
[2017-05-26] MEDS: VITAMIN D 1,000 INTERNATIONAL UNITS TABLET PO ×2 (09:00→21:00)
[2017-05-26] MEDS: MULTIVITAMINS/MINERALS THERAP 1 TAB PO (09:00)
[2017-05-26] MEDS: ONDANSETRON 4MG/2ML VIAL (J2405) IV ×3 (09:11→20:10)
[2017-05-26] MEDS: ENOXAPARIN 40 MG/0.4 ML SYRINGE (J1650) SC (09:11)
[2017-05-26] MEDS: AMIODARONE 200 MG TAB (PACERONE) PO ×2 (11:50→20:10)
[2017-05-26] MEDS: CARVedilol 12.5 MG TAB PO ×2 (11:51→21:00)
[2017-05-26] MEDS: FAMOTIDINE 20 MG TAB PO (21:00)
[2017-05-26] MEDS: ASPIRIN 81 MG ENTERIC TAB PO (21:00)
[2017-05-26] MEDS: LISINOPRIL 10 MG TAB PO (21:00)
[2017-05-27] MEDS: ONDANSETRON 4MG/2ML VIAL (J2405) IV ×4 (02:47→18:00)
[2017-05-27] MEDS: METOCLOPRAMIDE INJ 10MG/2ML VIAL (J2765) IV ×2 (05:12)
[2017-05-27 08:53] LABS: PROLACTIN 39.8 NG/ML (2.1-17.7)
[2017-05-27] MEDS: VITAMIN D 1,000 INTERNATIONAL UNITS TABLET PO ×2 (09:00→22:48)
[2017-05-27] MEDS: MULTIVITAMINS/MINERALS THERAP 1 TAB PO (09:00)
[2017-05-27] MEDS: AMIODARONE 200 MG TAB (PACERONE) PO ×2 (09:51→18:01)
[2017-05-27] MEDS: CARVedilol 12.5 MG TAB PO ×2 (09:52→22:51)
[2017-05-27 11:15] LABS: VITAMIN B12 LEVEL 285 PG/ML (247-911)
[2017-05-27] MEDS: ENOXAPARIN 40 MG/0.4 ML SYRINGE (J1650) SC (15:01)
[2017-05-27 15:14] LABS: HEMATOCRIT 44.4 % (42.0-52.0); HEMOGLOBIN 15.1 g/dl (13.5-17.5); MEAN CORPUSCULAR HEMOGLOBIN 30.4 pg (27.0-33.0); MEAN CORPUSCULAR VOLUME 89.5 fl (80.0-96.0); PLATELET COUNT, AUTOMATED 130 10^3/uL (150-450); RED BLOOD COUNT 4.96 10^6/uL (4.30-6.10); RED CELL DISTRIBUTION WIDTH 12.7 % (11.5-14.5); WHITE BLOOD COUNT 8.5 10^3/uL (4.0-10.0)
[2017-05-27 15:47] LABS: ANION GAP 9 MEQ/L (8-16); BLOOD UREA NITROGEN 26 MG/DL (7-18); CALCIUM LEVEL 8.2 MG/DL (8.8-10.2); CARBON DIOXIDE LEVEL 24 MEQ/L (21-32); CHLORIDE LEVEL 109 MEQ/L (98-107); CREATININE FOR GFR 1.19 MG/DL (0.70-1.30); GLOMERULAR FILTRATION RATE > 60.0 (>35); GLUCOSE, FASTING 91 MG/DL (70-100); POTASSIUM SERUM 4.1 MEQ/L (3.5-5.1); SODIUM LEVEL 142 MEQ/L (136-145)
[2017-05-27] MEDS: ASPIRIN 81 MG ENTERIC TAB PO (22:48)
[2017-05-27] MEDS: FAMOTIDINE 20 MG TAB PO (22:48)
[2017-05-27] MEDS: LISINOPRIL 10 MG TAB PO (22:51)
[2017-05-28] MEDS: ONDANSETRON 4MG/2ML VIAL (J2405) IV ×2 (03:00→09:00)
[2017-05-28] MEDS: AMIODARONE 200 MG TAB (PACERONE) PO ×2 (08:59→18:47)
[2017-05-28] MEDS: ENOXAPARIN 40 MG/0.4 ML SYRINGE (J1650) SC (09:00)
[2017-05-28] MEDS: MULTIVITAMINS/MINERALS THERAP 1 TAB PO (09:00)
[2017-05-28] MEDS: CARVedilol 12.5 MG TAB PO ×2 (09:00→20:53)
[2017-05-28] MEDS: VITAMIN D 1,000 INTERNATIONAL UNITS TABLET PO (09:00)
[2017-05-28] MEDS: ASPIRIN 81 MG ENTERIC TAB PO (20:53)
[2017-05-29 06:28] LABS: HEMATOCRIT 42.9 % (42.0-52.0); HEMOGLOBIN 14.5 g/dl (13.5-17.5); MEAN CORPUSCULAR HGB CONC 33.8 g/dl (32.0-36.5); MEAN CORPUSCULAR VOLUME 88.6 fl (80.0-96.0); PLATELET COUNT, AUTOMATED 126 10^3/uL (150-450); RED BLOOD COUNT 4.84 10^6/uL (4.30-6.10); RED CELL DISTRIBUTION WIDTH 12.6 % (11.5-14.5); WHITE BLOOD COUNT 6.4 10^3/uL (4.0-10.0)
[2017-05-29] MEDS: ENOXAPARIN 40 MG/0.4 ML SYRINGE (J1650) SC (09:16)
[2017-05-29] MEDS: AMIODARONE 200 MG TAB (PACERONE) PO ×2 (09:16→17:29)
[2017-05-29] MEDS: CARVedilol 12.5 MG TAB PO ×2 (09:17→20:04)
[2017-05-29] MEDS: ASPIRIN 81 MG ENTERIC TAB PO (20:03)
[2017-05-30] MEDS: AMIODARONE 200 MG TAB (PACERONE) PO ×2 (09:45→18:13)
[2017-05-30] MEDS: ENOXAPARIN 40 MG/0.4 ML SYRINGE (J1650) SC (09:45)
[2017-05-30] MEDS: OMEPRAZOLE 20 MG CAP PO (09:45)
[2017-05-30] MEDS: FAMOTIDINE 20 MG TAB PO ×2 (12:16→14:35)
[2017-05-30] MEDS: CARVedilol 12.5 MG TAB PO ×3 (12:17→23:44)
[2017-05-30 12:28] LABS: HEMATOCRIT 45.5 % (42.0-52.0); HEMOGLOBIN 15.4 g/dl (13.5-17.5); MEAN CORPUSCULAR HEMOGLOBIN 29.7 pg (27.0-33.0); MEAN CORPUSCULAR HGB CONC 33.8 g/dl (32.0-36.5); MEAN CORPUSCULAR VOLUME 87.7 fl (80.0-96.0); PLATELET COUNT, AUTOMATED 159 10^3/uL (150-450); RED BLOOD COUNT 5.19 10^6/uL (4.30-6.10); RED CELL DISTRIBUTION WIDTH 12.5 % (11.5-14.5); WHITE BLOOD COUNT 6.9 10^3/uL (4.0-10.0)
[2017-05-30] MEDS: diphenhydrAMINE INJ 50MG/ML VIAL (J1200) IV (12:43)
[2017-05-30 13:11] LABS: ANION GAP 10 MEQ/L (8-16); BLOOD UREA NITROGEN 22 MG/DL (7-18); CALCIUM LEVEL 8.6 MG/DL (8.8-10.2); CARBON DIOXIDE LEVEL 23 MEQ/L (21-32); CHLORIDE LEVEL 108 MEQ/L (98-107); CREATININE FOR GFR 1.17 MG/DL (0.70-1.30); GLOMERULAR FILTRATION RATE > 60.0 (>35); GLUCOSE, FASTING 79 MG/DL (70-100); POTASSIUM SERUM 4.1 MEQ/L (3.5-5.1); SODIUM LEVEL 141 MEQ/L (136-145)
[2017-05-30] MEDS: CYANOCOBALAMIN 1,000 MCG/ML VIAL (J3420) IM (16:46)
[2017-05-30] MEDS: MECLIZINE 25 MG TABLET PO ×2 (16:47→23:45)
[2017-05-30] MEDS: D5W/0.9% SODIUM CHLORIDE 1,000 ML IV (16:47)
[2017-05-30] MEDS: ONDANSETRON 4MG/2ML VIAL (J2405) IV ×2 (16:47→23:10)
[2017-05-30] MEDS: FAMOTIDINE INJ 20MG/2ML VIAL (S0028) IVP (21:15)
[2017-05-30] MEDS: PANTOPRAZOLE 40MG INJ (PROTONIX) (C9113) IV (21:15)
[2017-05-30] MEDS: ASPIRIN 81 MG ENTERIC TAB PO (23:46)
[2017-05-31] MEDS: AMIODARONE 200 MG TAB (PACERONE) PO ×2 (09:00→18:00)
[2017-05-31] MEDS: CYANOCOBALAMIN 1,000 MCG/ML VIAL (J3420) IM (10:24)
[2017-05-31] MEDS: MECLIZINE 25 MG TABLET PO ×3 (10:24→22:38)
[2017-05-31] MEDS: ENOXAPARIN 40 MG/0.4 ML SYRINGE (J1650) SC (10:24)
[2017-05-31] MEDS: ONDANSETRON 4MG/2ML VIAL (J2405) IV ×2 (10:25→18:20)
[2017-05-31] MEDS: PANTOPRAZOLE 40MG INJ (PROTONIX) (C9113) IV ×2 (10:25→22:37)
[2017-05-31] MEDS: FAMOTIDINE INJ 20MG/2ML VIAL (S0028) IVP ×2 (10:25→22:38)
[2017-05-31] MEDS: D5W/0.9% SODIUM CHLORIDE 1,000 ML IV (10:26)
[2017-05-31] MEDS: CARVedilol 12.5 MG TAB PO ×2 (13:26→22:38)
[2017-05-31] MEDS: THIAMINE HCL 200 MG/2 ML VIAL (J3411) IM (22:38)
[2017-05-31] MEDS: ASPIRIN 81 MG ENTERIC TAB PO (22:38)
[2017-06-01] MEDS: D5W/0.9% SODIUM CHLORIDE 1,000 ML IV ×2 (01:35→17:27)
[2017-06-01 06:03] LABS: HEMOGLOBIN 13.9 g/dl (13.5-17.5); MEAN CORPUSCULAR HEMOGLOBIN 30.3 pg (27.0-33.0); MEAN CORPUSCULAR HGB CONC 33.9 g/dl (32.0-36.5); MEAN CORPUSCULAR VOLUME 89.3 fl (80.0-96.0); PLATELET COUNT, AUTOMATED 122 10^3/uL (150-450); RED BLOOD COUNT 4.59 10^6/uL (4.30-6.10); RED CELL DISTRIBUTION WIDTH 12.9 % (11.5-14.5); WHITE BLOOD COUNT 5.2 10^3/uL (4.0-10.0)
[2017-06-01] MEDS: AMIODARONE 200 MG TAB (PACERONE) PO ×2 (07:18→20:25)
[2017-06-01] MEDS: PANTOPRAZOLE 40MG INJ (PROTONIX) (C9113) IV ×2 (08:53→20:25)
[2017-06-01] MEDS: CYANOCOBALAMIN 1,000 MCG/ML VIAL (J3420) IM (08:54)
[2017-06-01] MEDS: ONDANSETRON 4MG/2ML VIAL (J2405) IV ×2 (08:54→17:06)
[2017-06-01] MEDS: THIAMINE HCL 200 MG/2 ML VIAL (J3411) IM (08:54)
[2017-06-01] MEDS: ENOXAPARIN 40 MG/0.4 ML SYRINGE (J1650) SC (08:55)
[2017-06-01] MEDS: MECLIZINE 25 MG TABLET PO (08:55)
[2017-06-01] MEDS: FAMOTIDINE INJ 20MG/2ML VIAL (S0028) IVP ×2 (09:37→20:25)
[2017-06-01] MEDS: CARVedilol 12.5 MG TAB PO ×2 (12:51→22:21)
[2017-06-01] MEDS: ASPIRIN 81 MG ENTERIC TAB PO (20:25)
[2017-06-01 23:05] LABS: ANION GAP 5 MEQ/L (8-16); BLOOD UREA NITROGEN 15 MG/DL (7-18); CALCIUM LEVEL 7.9 MG/DL (8.8-10.2); CARBON DIOXIDE LEVEL 26 MEQ/L (21-32); CHLORIDE LEVEL 113 MEQ/L (98-107); CREATININE FOR GFR 1.15 MG/DL (0.70-1.30); GLOMERULAR FILTRATION RATE > 60.0 (>35); GLUCOSE, FASTING 84 MG/DL (70-100); MAGNESIUM LEVEL 2.1 MG/DL (1.8-2.4); POTASSIUM SERUM 3.4 MEQ/L (3.5-5.1); SODIUM LEVEL 144 MEQ/L (136-145)
[2017-06-02] MEDS: POTASSIUM CHLORIDE 10% LIQ 20 MEQ/15 ML UDC PO
[2017-06-02] MEDS ORDERED: AMIODARONE 100MG TABLET (PACERONE) PO (10:00)
[2017-06-04 00:07] LABS: ACETYLCHOLINE RCPTOR MODULATIN <12 % (0-20); COPPER PLASMA 100 ug/dL (72-166); VITAMIN B1 LEVEL WHOLE BLOOD 131.5 nmol/L (66.5-200.0)
[2017-06-04 00:07] LABS: ACETYLCHOLINE RCPTOR BLOCK AB 22 % (0-25)
== END 2017-06-02 03:15 | disposition short-term general hospital (02) | DRG 309 ==
LOC: M MSPAV 05-23 13:48 → M ED 09:56 → M ED INP 14:28 → M PCU 21:01
DX: I47.2 Ventricular tachycardia (principal); I50.42 Chronic combined systolic (congestive) and diastolic (congestive) heart failure; N17.9 Acute kidney failure, unspecified; I13.0 Hypertensive heart and chronic kidney disease with heart failure and stage 1 through stage 4 chronic kidney disease, or unspecified chronic kidney disease; T45.0X5A Adverse effect of antiallergic and antiemetic drugs, initial encounter; G25.1 Drug-induced tremor; R26.81 Unsteadiness on feet; K44.9 Diaphragmatic hernia without obstruction or gangrene; K21.9 Gastro-esophageal reflux disease without esophagitis; R11.2 Nausea with vomiting, unspecified; I48.0 Paroxysmal atrial fibrillation; N18.3 Chronic kidney disease, stage 3 (moderate); Z95.810 Presence of automatic (implantable) cardiac defibrillator; Z79.82 Long term (current) use of aspirin; Z79.899 Other long term (current) drug therapy; Z91.041 Radiographic dye allergy status; Z90.49 Acquired absence of other specified parts of digestive tract; Z86.74 Personal history of sudden cardiac arrest